=== PATIENT | male | born 1990 | race Asian ===

== ENCOUNTER 2020-09-12 09:06 | Outpatient (REF) | payer OTHER, SELFPAY | END 2020-09-12 09:07 | disposition home or self-care (01) | LOC: HO.LAB 09:06 | PROVIDERS: Visit Provider Internal Medicine | DX: Z20.828 Contact with and (suspected) exposure to other viral communicable diseases (principal) | CPT/HCPCS: 87635 ==

== ENCOUNTER 2021-02-26 08:18 | Outpatient (REF) | payer OTHER, SELFPAY ==
[2021-02-26 11:54] LABS: Alanine Aminotransferase 214 U/L (0-40); Albumin Level 3.9 g/dL (3.5-5.0); Alkaline Phosphatase 88 U/L (39-117); Anion Gap 11 (12-20); Aspartate Amino Transferase 86 U/L (5-37); Bilirubin Total 0.6 mg/dL (0.0-1.0); Blood Urea Nitrogen 14 mg/dL (9-16); Calcium 8.4 mg/dL (8.4-10.2); Carbon Dioxide 26 mmol/L (22-29); Chloride 106 mmol/L (96-108); Cholesterol 221 mg/dL; Estimated Glomerular Filt Rate > 60; HDL Cholesterol 53 mg/dL; LDL Cholesterol Calculated 145 mg/dl; Potassium 4.1 mmol/L (3.3-5.1); Sodium 139 mmol/L (135-145); Total Protein 7.4 g/dL (6.5-8.0); Triglycerides 117 mg/dL
[2021-02-26 11:56] LABS: Glucose Random 86 mg/dL (60-115)
[2021-02-26 12:14] LABS: TSH reflex Free T4 1.13 uIU/mL (0.32-4.0)
[2021-02-26 12:20] LABS: Vitamin B12 712 pg/mL (200-900)
[2021-03-03 19:07] LABS: Vitamin D 25-OH, D2 <4 ng/mL; Vitamin D 25-OH, D3 14 ng/mL; Vitamin D 25-OH, Total 14 ng/mL (30-100)
== END 2021-02-26 08:19 | disposition home or self-care (01) ==
LOC: HO.HMGCLDS 08:18
PROVIDERS: PCP Internal Medicine; Visit Provider Internal Medicine
DX: Z00.01 Encounter for general adult medical examination with abnormal findings (principal); R53.83 Other fatigue; R40.0 Somnolence; R06.83 Snoring; E66.9 Obesity, unspecified
CPT/HCPCS: 36415; 80053; 80061; 82306; 82607; 84443

== ENCOUNTER → 2021-02-28 13:00 | Outpatient (REF) | payer OTHER, SELFPAY | LOC: HO.SL 13:00 | PROVIDERS: PCP Internal Medicine; Visit Provider Internal Medicine | DX: G47.33 Obstructive sleep apnea (adult) (pediatric) (principal); R53.83 Other fatigue; R40.0 Somnolence; R06.83 Snoring; E66.9 Obesity, unspecified | CPT/HCPCS: 95806 ==

== ENCOUNTER 2021-03-09 09:12 | Outpatient (REF) | payer OTHER, SELFPAY ==
[2021-03-09 12:14] LABS: Alanine Aminotransferase 243 U/L (0-40); Alkaline Phosphatase 99 U/L (39-117); Anion Gap 12 (12-20); Aspartate Amino Transferase 103 U/L (5-37); Bilirubin Total 0.6 mg/dL (0.0-1.0); Blood Urea Nitrogen 15 mg/dL (9-16); Calcium 8.8 mg/dL (8.4-10.2); Carbon Dioxide 25 mmol/L (22-29); Chloride 106 mmol/L (96-108); Estimated Glomerular Filt Rate > 60; Glucose Fasting 81 mg/dL (60-99); Potassium 4.1 mmol/L (3.3-5.1); Sodium 139 mmol/L (135-145); Total Protein 7.7 g/dL (6.5-8.0)
[2021-03-12 08:14] LABS: ~HepC Num1 0.16 S/CO (0.00-0.79); ~Hepatitis C Antibody Nonreactive (Nonreactive)
[2021-03-12 08:49] LABS: ~Hepatitis B Surface Antibody NONREACTIVE (Nonreactive)
[2021-03-12 09:27] LABS: HBsAGNum2 Reactive
[2021-03-12 09:28] LABS: HBsAGNum3 Reactive; Hepatitis B Surface Antigen Retest CNFM (Negative)
[2021-03-12 09:34] LABS: HBc Num2 12.46 S/CO; HBc Num3 11.86 S/CO; Hepatitis B Core Antibody Reactive (Nonreactive)
[2021-03-12 11:27] LABS: Neutralization % 1
[2021-03-12 12:24] LABS: Neutral % 500 984
[2021-03-13 08:51] LABS: Hepatitis B Core Antibody IgM NON-REACTIVE (NON-REACTIVE)
[2021-03-14 07:41] LABS: Hepatitis A Antibody IgM 0.19 Index (0-0.79); ~Hepatitis A Antibody IgM Nonreactive (Nonreactive)
== END 2021-03-09 09:13 | disposition home or self-care (01) ==
LOC: HO.HMGCLDS 09:12
PROVIDERS: PCP Internal Medicine; Visit Provider Internal Medicine
DX: Z00.01 Encounter for general adult medical examination with abnormal findings (principal); E66.9 Obesity, unspecified; R79.89 Other specified abnormal findings of blood chemistry; R06.83 Snoring; R40.0 Somnolence; R53.83 Other fatigue
CPT/HCPCS: 36415; 80053; 86704; 86705; 86706; 86709; 86803; 87340

== ENCOUNTER 2021-04-17 08:29 | Outpatient (REF) | payer OTHER, SELFPAY ==
--- NOTE | ~2021-04-17 | US_ITS ---
EXAMINATION: US ABDOMEN COMPLETE CLINICAL INFORMATION: Elevated LFTs. COMPARISON: None TECHNIQUE: Real-time imaging of the abdominal viscera. FINDINGS: PANCREAS: Partially visualized pancreas appears unremarkable. ABDOMINAL AORTA: The proximal, mid, and distal segments are normal in caliber. INFERIOR VENA CAVA: Visualized portions are normal. LIVER: The liver is normal in size. The liver contour is normal. There is diffuse increased liver echogenicity without any focal lesion. There is no intrahepatic biliary duct dilatation seen. GALLBLADDER: The gallbladder is physiologically distended with notable nonmobile polyps. There is no wall thickness. COMMON BILE DUCT: Normal in caliber measuring 0.38 cm in diameter. RIGHT KIDNEY: Normal. No hydronephrosis. No renal calculi or focal parenchymal lesions. The kidney measures 12.2 cm in maximum dimension. LEFT KIDNEY: Normal. No hydronephrosis. No renal calculi or focal parenchymal lesions. The kidney measures 11.9 cm in maximum dimension. SPLEEN: Normal. The spleen measures 9.0 cm in maximum dimension. FREE FLUID: None. US/US abdomen complete IMPRESSION: Multiple nonmobile gallstones without wall thickening or echogenic stones. Partially visualized pancreas is unremarkable. Rest of the abdominal ultrasound is unremarkable.
== END 2021-04-17 08:30 | disposition home or self-care (01) ==
LOC: HO.US 08:29
PROVIDERS: PCP Internal Medicine; Visit Provider Internal Medicine
DX: R79.89 Other specified abnormal findings of blood chemistry (principal)
CPT/HCPCS: 76700

== ENCOUNTER → 2021-05-14 08:28 | Outpatient (BNVA) | payer OTHER, SELFPAY | PROVIDERS: PCP Internal Medicine; Visit Provider Internal Medicine Gastroenterology ==

== ENCOUNTER 2021-05-29 08:06 | Outpatient (REF) | payer OTHER, SELFPAY ==
[2021-05-29 11:13] LABS: MANUAL DIFF FLAG NO
[2021-05-29 11:26] LABS: Basophils Percent Auto 0.1 % (0-2); Eosinophils Absolute Auto 0.3 X10*3/uL (0.0-0.4); Eosinophils Percent Auto 3.5 % (0-4); Hematocrit 45.9 % (42-52); Hemoglobin 15.3 g/dl (14.0-18.0); Imm Gran Abs Auto 0.01 X10*3/uL (0.00-0.03); Imm Gran Pct Auto 0.1 % (0.0-0.4); Lymphocytes Absolute Auto 3.1 X10*3/uL (1.2-4.9); Lymphocytes Percent Auto 43.2 % (20-40); Mean Corpuscular HGB Conc 33.3 g/dl (31.0-36.0); Mean Corpuscular Hemoglobin 29.5 pg (27.0-33.0); Mean Corpuscular Volume 88.4 fL (80-98); Mean Platelet Volume 8.8 fL (9.4-12.4); Monocytes Absolute Auto 0.5 X10*3/uL (0.1-1.2); Monocytes Percent Auto 6.2 % (2-11); Neutrophils Absolute Auto 3.4 X10*3/uL (2.0-8.3); Neutrophils Percent Auto 46.9 % (45-73); Platelet Count 243 X10*3/uL (160-400); Red Blood Count 5.19 X10*6/uL (4.60-5.80); White Blood Count 7.2 X10*3/uL (4.8-10.8)
[2021-05-29 12:27] LABS: Alanine Aminotransferase 158 U/L (0-40); Albumin Level 3.9 g/dL (3.5-5.0); Alkaline Phosphatase 105 U/L (39-117); Aspartate Amino Transferase 81 U/L (5-37); Bilirubin Direct 0.4 mg/dL (0.0-0.5); Total Protein 7.5 g/dL (6.5-8.0)
[2021-05-30 04:43] LABS: Hepatitis A Antibody IgG REACTIVE (Nonreactive); ~Hepatitis A Antibody IgG 7.89 S/CO (0.00-0.99)
[2021-05-31 14:31] LABS: Hepatitis B Viral DNA Qn - cp 8.15 Log IU/mL (NOT DETECTED)
[2021-06-01 09:37] LABS: Hepatitis BE Antibody NON-REACTIVE (NON-REACTIVE); Hepatitis BE Antigen REACTIVE (NON-REACTIVE)
== END 2021-05-29 08:07 | disposition home or self-care (01) ==
LOC: HO.HMGCLDS 08:06
PROVIDERS: PCP Internal Medicine; Visit Provider Internal Medicine Gastroenterology
DX: B19.10 Unspecified viral hepatitis B without hepatic coma (principal); R79.89 Other specified abnormal findings of blood chemistry
CPT/HCPCS: 36415; 80076; 85025; 85610; 86707; 86708; 87350; 87517

== ENCOUNTER → 2021-07-16 14:09 | Outpatient (BNVA) | payer OTHER, SELFPAY | PROVIDERS: Visit Provider Internal Medicine Gastroenterology ==